=== PATIENT | male | born 1970 | race Two or more races ===

== ENCOUNTER 2019-09-23 00:10 | Emergency (ER) | payer OTHER, SELFPAY ==
[~2019-09-23] VITALS: Ht 172.7 cm; Wt 92.2 kg
[2019-09-23] MEDS ORDERED: KETOROLAC 30 MG/1 ML IM ONE (00:30)
[2019-09-23] MEDS ORDERED: KETOROLAC 30 MG/1 ML ONE (00:37)
--- NOTE | 2019-09-23 00:44 | NUR ---
Medicated per MAR.
[2019-09-23 00:54] LABS: BASOPHILS # (AUTO) 0.03 x10^3/uL (0-0.1); BASOPHILS % (AUTO) 0 % (0-1); EOSINOPHILS # (AUTO) 0.42 x10^3/uL (0-0.4); EOSINOPHILS % (AUTO) 6 % (1-7); LYMPHOCYTES # (AUTO) 0.93 x10^3/uL (1-3.4); LYMPHOCYTES % (AUTO) 13 % (22-44); MD NO; MEAN CORPUSCULAR HEMOGLOBIN 30.4 pg (27.5-34.5); MEAN CORPUSCULAR HGB CONC 33.9 g/dL (33.2-36.2); MEAN CORPUSCULAR VOLUME 89.7 fL (81-97); MEAN PLATELET VOLUME 9.3 fL (7.4-10.4); MONOCYTES # (AUTO) 0.54 x10^3/uL (0.2-0.8); MONOCYTES % (AUTO) 8 % (2-9); NEUTROPHILS % (AUTO) 72 % (42-75); PLATELET COUNT 219 x10^3/uL (130-400); RED BLOOD COUNT 4.53 x10^6/uL (4.38-5.82); RED CELL DISTRIBUTION WIDTH 12.6 % (9.4-14.8)
[2019-09-23 00:59] LABS: ANION GAP 6 mmol/L (5-15); CALCIUM 8.3 mg/dL (8.5-10.1); CHLORIDE 109 mmol/L (98-107); CREATININE 1.09 mg/dL (0.7-1.3)
[2019-09-23 01:04] LABS: RAPID INFLUENZA A Negative (Negative); RAPID INFLUENZA B POSITIVE (Negative)
[2019-09-23 01:58] VITALS: BP 108/74
== END 2019-09-23 02:08 | disposition home or self-care (01) ==
LOC: ED 01:45
DX: J10.1 Influenza due to other identified influenza virus with other respiratory manifestations (principal); I10 Essential (primary) hypertension; M79.10 Myalgia, unspecified site; R51 Headache; Z87.891 Personal history of nicotine dependence
CPT/HCPCS: 36415; 71046; 80048; 82040; 84145; 85025; 87400; 96372; 99284; J1885; J7512